=== PATIENT | female | born 1960 | race Caucasian/White ===

== ENCOUNTER 2023-02-23 11:35 | Inpatient (IN) | payer BC, SELFPAY ==
--- OUTSIDE RECORDS SUMMARY | 2023-02-23 11:38 | XMS REPORT | Continuity of Care Document ---
Author Name Unknown Address [address] [facility] [address] th[address] Address [address] [facility] [address] [place] [address] Care Team Providers [employer] Name Role Phone Unavailable Unavailable Unavailable
[2023-02-23] MEDS ORDERED: ONDANSETRON 4 MG/2 ML VIAL ONE (12:44)
[2023-02-23] MEDS ORDERED: MORPHINE 4 MG/ML SYR ONE (12:45)
[2023-02-23] MEDS ORDERED: NA CHLORIDE 0.9% 500 ML ONE ×2 (12:45→14:56)
[2023-02-23] MEDS ORDERED: FAMOTIDINE 20 MG/2 ML VIAL IV ONE (12:45)
[2023-02-23 13:18] LABS: Albumin 4.4 g/dL (3.4-5.0); Bilirubin Total 0.7 mg/dL (0.2-1.0); Potassium 3.1 mEq/L (3.5-5.1); Protein, Total 8.6 g/dL (6.4-8.2)
[2023-02-23 13:28] LABS: Absolute Lymphocytes (CBC) 1.3 K/uL (0.7-4.9); Hematocrit 51.1 % (36.0-45.0); Lymphocytes % 17.9 % (15.3-44.8); MCV 86.5 fL (80-100); MPV 8.5 fL (7.6-11.3); Platelets 249 thou/uL (152-406)
--- NOTE | 2023-02-23 14:03 | RAD REPORT ---
EXAM DESCRIPTION: CT - Abdomen Pelvis W Contrast - 02/23/2023 1:33 pm CLINICAL HISTORY: painful lump near right groin COMPARISON: No comparisons TECHNIQUE: Thin cut axial CT imaging of the abdomen and pelvis was performed following intravenous a dministration of 100 mL Isovue 300. Multiplanar reformats were generated and reviewed. All CT scans are performed using dose optimization technique as appropriate and may include automated exposure control or mA/KV adjustment according to patient size. FINDINGS: No suspicious findings in the lung bases. The liver, spleen, adrenal glands, and pancreas show no suspicious findings. Gallbladder and biliary tree are also without suspicious finding. Symmetric renal function is seen, although there are multifocal areas of cortical thinning, may relat e to scarring in the setting of prior infections, with no hydronephrosis or suspicious renal mass. No dilated bowel loops. Segmental regions of mild colonic wall thickening throughout, most notably al jeison the ascending colon, mid to distal transverse colon, and sigmoid colon. Mild mesenteric edema. No free air, free fluid or fluid collection. A hernia is noted in the right lower quadrant with its nec k just medial to the right femoral vein, axial image 66, with hernia sac filled with fluid measuring 3.3 x 3.3 cm. No suspicious mass or bulky lymphadenopathy. The urinary bladder is without significant finding. No suspicious bony findings. IMPRESSION: Right femoral fluid-filled small hernia, sac measuring up to 3.3 cm. Segmental colonic wall thickening, suggestive of nonspecific infectious or inflammatory colitis.
[2023-02-23] MEDS ORDERED: metroNIDAZOLE 500 MG TABLET ONE (14:47)
[2023-02-23] MEDS ORDERED: levoFLOXacin 250 MG TAB ONE (14:47)
[2023-02-23] MEDS ORDERED: KCL 20 MEQ/100 mL IVPB 100 ML IV ONE (14:48)
[2023-02-23] MEDS ORDERED: POTASSIUM 25 MEQ EFFERV TAB ONE (14:48)
--- NOTE | 2023-02-23 16:01 | ER ---
Nurse's Notes [facility] Name: Fauzia Jimenez Age: 62 yrs Sex: Female : 1960 Arrival Date: 02/23/2023 Time: 11:35 Bed 14 Private MD: Diagnosis: Vomiting;Colitis, right inguinal hernia, hypokalemia, hyponatremia Presentation: 02/23 11:47 Chief complaint: Malaise, N/V, dizziness, and generalized weakness x 5 days, painful hb lump near right groin x 4 days. Coronavirus screen: Client presents with at least one sign or symptom that may indicate coronavirus-19. Provider contacted for isolation considerations. Ebola Screen: No symptoms or risks identified at this time. Initial Sepsis Screen: Does the patient meet any 2 criteria? No. Patient's initial sepsis screen is negative. Does the patient have a suspected source of infection? No. Patient's initial sepsis screen is negative. Risk Assessment: Do you want to hurt yourself or someone else? Patient reports no desire to harm self or others. Onset of symptoms was February 19, 2023. 11:47 Method Of Arrival: Wheelchair hb 11:47 Acuity: TONY 3 hb Historical: - Allergies: 11:49 No Known Allergies; hb - Home Meds: 11:49 HRT [Active]; Alprazolam Oral [Active]; hb - PMHx: 11:49 None; hb - PSHx: 11:49 Breast Reduction; hb 11:50 Tubal Ligation; hb - Immunization history:: Adult Immunizations up to date. - Social history:: Smoking status: Patient denies any tobacco usage or history of. Screenin:10 [facility] ED Fall Risk Assessment (Adult) History of falling in the last 3 months, me1 including since admission No falls in past 3 months (0 pts) Confusion or Disorientation No (0 pts) Intoxicated or Sedated No (0 pts) Impaired Gait No (0 pts) Mobility Assist Device Used No (0 pt) Altered Elimination No (0 pt) Score/Fall Risk Level 0 - 2 = Low Risk Maintained a safe environment, Provided non-skid footwear, Hourly rounding (assess needs \T\ fall precautionary measures) done. Abuse screen: Denies threats or abuse. Nutritional screening: No deficits noted. Tuberculosis screening: No symptoms or risk factors identified. Assessment: 12:10 General: Appears uncomfortable, ill, well groomed, well developed, well nourished, me1 Behavior is calm, cooperative, appropriate for age, Reports feeling ill for fatigue for 2-3 days, Malaise, N/V, dizziness, and generalized weakness x 5 days, painful lump near right groin x 4 days. Pain: Complains of pain in right femoral area Pain does not radiate. Pain currently is 2 out of 10 on a pain scale. Quality of pain is described as tender, Pain began gradually, 2-3 days ago. Is intermittent. Neuro: Level of Consciousness is awake, alert, obeys commands, Oriented to person, place, time, situation, Appropriate for age. Cardiovascular: Capillary refill < 3 seconds Patient's skin is warm and dry. Respiratory: Airway is patent Respiratory effort is even, unlabored, Respiratory pattern is regular, symmetrical. GI: Reports nausea, vomiting, since 5 days. 22:36 General: Tried to call report. OPHELIA Martines was busy and will return my call. . me1 Vital Signs: 11:47 BP 166 / 99; Pulse 86; Resp 16; Temp 98.2; Pulse Ox 100% on R/A; Weight 50.35 kg; hb Height 5 ft. 4 in. ; Pain 3/10; 12:07 BP 174 / 103; Pulse 90; Resp 18; Pulse Ox 99% on R/A; me1 13:00 BP 184 / 108; Pulse 79; Resp 18; Pulse Ox 99% on R/A; me1 14:13 BP 174 / 105; Pulse 82; Resp 16; Pulse Ox 95% on R/A; me1 15:00 BP 181 / 104; Pulse 74; Resp 18; Pulse Ox 100% on R/A; me1 16:00 BP 170 / 93; Pulse 81; Resp 16; Pulse Ox 99% on R/A; me1 17:00 BP 154 / 96; Pulse 90; Resp 17; Pulse Ox 100% on R/A; me1 18:00 BP 161 / 95; Pulse 82; Resp 15; Pulse Ox 98% on R/A; me1 19:00 BP 145 / 84; Pulse 82; Resp 16; Pulse Ox 96% on R/A; me1 20:00 BP 163 / 95; Pulse 76; Resp 14; Pulse Ox 96% on R/A; me1 11:47 Body Mass Index 19.05 (50.35 kg, 162.56 cm) hb 11:47 Pain Scale: Adult hb ED Course: 11:38 Patient arrived in ED. ts1 11:49 Triage completed. hb 11:50 Arm band placed on. hb 12:00 Moses Maxwell MD is Attending Physician. kdr 12:08 Samina Rome, OPHELIA is Primary Nurse. me1 12:10 Patient has correct armband on for positive identification. Bed in low position. Call me1 light in reach. Side rails up X2. Provided Education on: POC. Verbalized understanding.. 12:10 No provider procedures requiring assistance completed. me1 12:48 Inserted saline lock: 22 gauge in right antecubital area, using aseptic technique. bc6 Blood collected. 15:58 Osmin Smith MD is Hospitalizing Provider. kdr 16:08 Inocencio Lara is Hospitalizing Provider. kdr 19:14 CBC with Diff Sent. me1 19:14 CMP Sent. me1 19:14 Lipase Sent. me1 19:25 Urinalysis w/ reflexes Sent. me1 20:00 Patient admitted, IV remains in place. me1 Administered Medications: 12:54 Drug: NS 0.9% IV 500 ml IV at 1 bolus Per protocol; 500 mL bolus Route: IV; Rate: 1 me1 bolus; Site: right antecubital; 13:16 Follow up: IV Status: Completed infusion; IV Intake: 500ml me1 12:54 Drug: Famotidine IVP 20 mg IVP once; dilute with 10 mL 0.9% NaCl; give over 2 minutes me1 Route: IVP; Site: right antecubital; 13:17 Follow up: Response: No adverse reaction me1 12:54 Drug: Ondansetron IVP 4 mg IVP once; over 2 minutes Route: IVP; Site: right antecubital;me1 13:17 Follow up: Response: No adverse reaction; Nausea is decreased me1 12:55 Drug: morphine IVP or IV 4 mg IVP once over 4 mins Route: IVP; Infused Over: 4 mins; me1 Site: right antecubital; 13:17 Follow up: Response: No adverse reaction; Pain is decreased me1 15:02 Drug: metroNIDAZOLE PO 500 mg PO once Route: PO; me1 16:43 Follow up: Response: No adverse reaction me1 15:02 Drug: LevOfloxacin PO 500 mg PO once Route: PO; me1 16:43 Follow up: Response: No adverse reaction me1 15:02 Drug: Potassium Chloride IV 20 mEq IV at calculated rate once; administer over 1-2 me1 hours Route: IV; Rate: calculated rate; Site: right antecubital; 19:01 Follow up: IV Status: Completed infusion; IV Intake: 100ml me1 19:01 Follow up: Response: No adverse reaction me1 15:02 Drug: Potassium PO Effervescent Tablet 50 mEq PO once; dissolve in 4 ounces of water or me1 juice Route: PO; 16:44 Follow up: Response: No adverse reaction me1 Medication: 12:10 VIS not applicable for this client. me1 Intake: 13:16 IV: 500ml; Total: 500ml. me1 19:01 IV: 100ml; Total: 600ml. me1 Outcome: 16:01 Decision to Hospitalize by Provider. kdr 22:33 Admitted to Tele accompanied by tech, via wheelchair, room 404, with chart, me1 22:33 Condition: stable 23:13 Admitted to Tele Report called to OPHELIA Martines me1 02/24 00:10 Patient left the ED. va1 Signatures: Moses Maxwell MD MD [facility] Cat Hurley RN RN Alondra Christensen 6 Yolanda Negron PAS PAS ts1 Samina Rome RN RN me1 Corrections: (The following items were deleted from the chart) 02/23 11:50 11:49 PSHx: None; [facility] 13:39 11:47 Chief complaint: Malaise, N/V, dizziness, and generalized weakness x 5 days, me1 painful lump near right groin x 4 days.
--- NOTE | 2023-02-23 16:01 | EDPHYS ---
Physician Documentation [facility] Name: Fauzia Jimenez Age: 62 yrs Sex: Female : 1960 Arrival Date: 02/23/2023 Time: 11:35 Bed 14 Private MD: ED Physician Moses Maxwell HPI: 02/23 13:28 This 62 yrs old Female presents to ER via Wheelchair with complaints of General kdr Weakness, Pelvic Pain, Cough. 13:28 Patient states that she has had nausea and vomiting since . She now kdr complains of generalized malaise, dizziness and generalized weakness. Overall this is been going on for about 5 days. She also noted initially when she started to vomit that she had a swelling in her right groin. That swelling has been there now for least 4 days. It appears that she has an inguinal hernia that is has not been reduced at this time. Initial efforts to reduce it without sedation or not successful. Patient otherwise stable in the ED. Onset: The symptoms/episode began/occurred gradually, 5 day(s) ago. Severity of symptoms: At their worst the symptoms were moderate in the emergency department the symptoms are unchanged. The patient has not experienced similar symptoms in the past. The patient has not recently seen a physician. Patient had intermittent swelling of the right groin for the past several years but has not thought much of it since it usually went away without any difficulty. Historical: - Allergies: 11:49 No Known Allergies; hb - Home Meds: 11:49 HRT [Active]; Alprazolam Oral [Active]; hb - PMHx: 11:49 None; hb - PSHx: 11:49 Breast Reduction; hb 11:50 Tubal Ligation; hb - Immunization history:: Adult Immunizations up to date. - Social history:: Smoking status: Patient denies any tobacco usage or history of. ROS: 13:28 Constitutional: Negative for fever, chills, and weight loss, Eyes: Negative for injury, kdr pain, redness, and discharge, Neck: Negative for injury, pain, and swelling, Cardiovascular: Negative for chest pain, palpitations, and edema, Respiratory: Negative for shortness of breath, cough, wheezing, and pleuritic chest pain, Back: Negative for injury and pain, : Negative for injury, bleeding, discharge, and swelling, MS/Extremity: Negative for injury and deformity, Skin: Negative for injury, rash, and discoloration, Neuro: Negative for headache, weakness, numbness, tingling, and seizure activity. Psych: Negative for depression, anxiety, suicide ideation, homicidal ideation, and hallucinations, Allergy/Immunology: Negative for hives, rash, and allergies, Endocrine: Negative for neck swelling, polydipsia, polyuria, polyphagia, and marked weight changes, Hematologic/Lymphatic: Negative for swollen nodes, abnormal bleeding, and unusual bruising, 13:28 Abdomen/GI: Positive for abdominal pain, nausea and vomiting, Negative for constipation, abdominal distension, anorexia, dysphagia, hematemesis, black/tarry stool, rectal pain, rectal bleeding, Exam: 13:28 Constitutional: This is a well developed, well nourished patient who is awake, alert, kdr and in no acute distress. Head/Face: Normocephalic, atraumatic. Eyes: Pupils equal round and reactive to light, extra-ocular motions intact. Lids and lashes normal. Conjunctiva and sclera are non-icteric and not injected. Cornea within normal limits. Periorbital areas with no swelling, redness, or edema. Neck: Trachea midline, no thyromegaly or masses palpated, and no cervical lymphadenopathy. Supple, full range of motion without nuchal rigidity, or vertebral point tenderness. No Meningismus. Chest/axilla: Normal chest wall appearance and motion. Nontender with no deformity. No lesions are appreciated. Cardiovascular: Regular rate and rhythm with a normal S1 and S2. No gallops, murmurs, or rubs. Normal PMI, no JVD. No pulse deficits. Respiratory: Lungs have equal breath sounds bilaterally, clear to auscultation and percussion. No rales, rhonchi or wheezes noted. No increased work of breathing, no retractions or nasal flaring. Abdomen/GI: Soft, non-tender, with normal bowel sounds. No distension or tympany. No guarding or rebound. No evidence of tenderness throughout. Back: No spinal tenderness. No costovertebral tenderness. Full range of motion. Skin: Warm, dry with normal turgor. Normal color with no rashes, no lesions, and no evidence of cellulitis. MS/ Extremity: Pulses equal, no cyanosis. Neurovascular intact. Full, normal range of motion. Neuro: Awake and alert, GCS 15, oriented to person, place, time, and situation. Cranial nerves II-XII grossly intact. Motor strength 5/5 in all extremities. Sensory grossly intact. Cerebellar exam normal. Normal gait. Psych: Awake, alert, with orientation to person, place and time. Behavior, mood, and affect are within normal limits. Vital Signs: 11:47 BP 166 / 99; Pulse 86; Resp 16; Temp 98.2; Pulse Ox 100% on R/A; Weight 50.35 kg; hb Height 5 ft. 4 in. ; Pain 3/10; 12:07 BP 174 / 103; Pulse 90; Resp 18; Pulse Ox 99% on R/A; me1 13:00 BP 184 / 108; Pulse 79; Resp 18; Pulse Ox 99% on R/A; me1 14:13 BP 174 / 105; Pulse 82; Resp 16; Pulse Ox 95% on R/A; me1 15:00 BP 181 / 104; Pulse 74; Resp 18; Pulse Ox 100% on R/A; me1 16:00 BP 170 / 93; Pulse 81; Resp 16; Pulse Ox 99% on R/A; me1 17:00 BP 154 / 96; Pulse 90; Resp 17; Pulse Ox 100% on R/A; me1 18:00 BP 161 / 95; Pulse 82; Resp 15; Pulse Ox 98% on R/A; me1 19:00 BP 145 / 84; Pulse 82; Resp 16; Pulse Ox 96% on R/A; me1 20:00 BP 163 / 95; Pulse 76; Resp 14; Pulse Ox 96% on R/A; me1 11:47 Body Mass Index 19.05 (50.35 kg, 162.56 cm) hb 11:47 Pain Scale: Adult hb MDM: 13:28 Data reviewed: vital signs, nurses notes, old medical records, radiologic studies. kdr 16:01 Patient medically screened. kdr 16:11 ED course: Discussed with Dr. Durbin, he will see the patient and evaluate the right kdr inguinal hernia. 02/23 12:28 Order name: CBC with Diff kdr 02/23 12:28 Order name: CMP kdr 02/23 12:28 Order name: Lipase kdr 02/23 12:28 Order name: Urinalysis w/ reflexes kdr 02/23 13:18 Order name: Comprehensive Metabolic Panel EDMS 02/23 13:18 Order name: Lipase EDMS 02/23 13:29 Order name: CBC with Automated Diff EDMS 02/23 19:40 Order name: Urinalysis w/ reflexes EDMS 02/23 12:28 Order name: CT Abd/Pelvis - IV Contrast Only kdr 02/23 14:04 Order name: CT; Complete Time: 14:34 EDMS 02/23 12:28 Order name: IV Saline Lock; Complete Time: 12:48 kdr 02/23 12:28 Order name: Labs collected and sent; Complete Time: 12:48 kdr Administered Medications: 12:54 Drug: NS 0.9% IV 500 ml IV at 1 bolus Per protocol; 500 mL bolus Route: IV; Rate: 1 me1 bolus; Site: right antecubital; 13:16 Follow up: IV Status: Completed infusion; IV Intake: 500ml me1 12:54 Drug: Famotidine IVP 20 mg IVP once; dilute with 10 mL 0.9% NaCl; give over 2 minutes me1 Route: IVP; Site: right antecubital; 13:17 Follow up: Response: No adverse reaction me1 12:54 Drug: Ondansetron IVP 4 mg IVP once; over 2 minutes Route: IVP; Site: right antecubital;me1 13:17 Follow up: Response: No adverse reaction; Nausea is decreased me1 12:55 Drug: morphine IVP or IV 4 mg IVP once over 4 mins Route: IVP; Infused Over: 4 mins; me1 Site: right antecubital; 13:17 Follow up: Response: No adverse reaction; Pain is decreased me1 15:02 Drug: metroNIDAZOLE PO 500 mg PO once Route: PO; me1 16:43 Follow up: Response: No adverse reaction me1 15:02 Drug: LevOfloxacin PO 500 mg PO once Route: PO; me1 16:43 Follow up: Response: No adverse reaction me1 15:02 Drug: Potassium Chloride IV 20 mEq IV at calculated rate once; administer over 1-2 me1 hours Route: IV; Rate: calculated rate; Site: right antecubital; 19:01 Follow up: IV Status: Completed infusion; IV Intake: 100ml me1 19:01 Follow up: Response: No adverse reaction me1 15:02 Drug: Potassium PO Effervescent Tablet 50 mEq PO once; dissolve in 4 ounces of water or me1 juice Route: PO; 16:44 Follow up: Response: No adverse reaction me1 Disposition Summary: 02/23/23 16:01 Hospitalization Ordered Notes: Hospitalization Status: Observation kdr Condition: Fair kdr Problem: new kdr Symptoms: have improved kdr Bed/Room Type: Standard kdr Provider: Inocencio Lara(02/23/23 16:08) kdr Location: Telemetry/MedSurg (observation)(02/23/23 22:11) cg Room Assignment: [facility](02/23/23 22:13) Diagnosis - Vomiting kdr - Colitis, right inguinal hernia, hypokalemia, hyponatremia kdr Forms: - Medication Reconciliation Form kdr - SBAR form kdr - Leadership Thank You Letter kdr Signatures: Dispatcher [employer] EDMoses Herron MD MD kdr Kristine De Luna RN RN Cat Hurley RN RN Darling Keller Samina Rome RN RN ks1 Corrections: (The following items were deleted from the chart) 11:50 11:49 PSHx: None; hb hb 16:08 16:01 Osmin Smith kdr kdr 17:15 16:01 Telemetry/MedSurg (observation) kdr eb 17:15 16:01 kdr eb 22:11 17:15 [facility] ER HOLD eb cg 22:11 17:15 ERHOLD- eb cg 22:13 22:11 cg cg
[2023-02-23] MEDS ORDERED: ONDANSETRON 4 MG/2 ML VIAL IV PRN (16:48)
[2023-02-23] MEDS ORDERED: ALBUTEROL 2.5 MG/3 ML NEB SOL NEB PRN (16:48)
[2023-02-23] MEDS ORDERED: NA CHLORIDE 0.9% 1,000 ML IV SCH (17:00)
[2023-02-23] MEDS ORDERED: MORPHINE 2 MG/ML SYR IV PRN (17:01)
--- NOTE | 2023-02-23 17:12 | P.HP ---
Certification for Inpatient Patient admitted to: Inpatient With expected LOS: >2 Midnights Patient will require the following post-hospital care: None Practitioner: I am a practitioner with admitting privileges, knowledge of patient current condition, hospital course, and medical plan of care. Services: Services provided to patient in accordance with Admission requirements found in Title 42 Section 412.3 of the Code of Federal Regulations Patient History Date of Service: 02/23/23 Reason for admission: right inguinal hernia History of Present Illness: Fauzia Andino is a 62-year-old female with past medical history of anxiety depression, COPD, smoking abuse, and marijuana use who presents to the ED with complaints of persistent nausea and vomiting and right inguinal hernia pain. She reports feeling sick with vomiting since . She reports her mother in November and she has been moving items now with a right inguinal hernia. CT abdomen pelvis with contrast reports a right femoral fluid-filled small hernia and segmental colonic wall thickening suggestive of nonspecific infectious or inflammatory colitis. Significant labs lipase 41, T. bili 0.7, WBC 7.4. CT abdomen pelvis with contrast reports " Right femoral fluid-filled small hernia, sac measuring up to 3.3 cm. Segmental colonic wall thickening, suggestive of nonspecific infectious or inflammatory colitis." Initial vitals: BP 166 / 99; Pulse 86; Resp 16; Temp 98.2; Pulse Ox 100% on R/A Laboratory evaluation sodium 128, potassium 3.1, BUN/creatinine 12/1.05, GFR 61, serum glucose 91, lipase 41, total bili 0.7. Palma will be admitted to hospitalist service for further treatment of right inguinal hernia, colitis, persistent nausea vomiting, hypokalemia, hyponatremia with a consult to Dr. Durbin for surgical intervention. Allergies No Known Allergies Allergy (Unverified 02/23/23 12:39) Review of Systems Gastrointestinal: Nausea, Vomiting, Abdominal Pain, Other (right inguinal pain) Physical Examination - Physical Exam General: Alert, Oriented x3, Moderate distress HEENT: Atraumatic, Normocephalic, PERRLA Neck: Supple, 2+ carotid pulse no bruit, JVD not distended Respiratory: Clear to auscultation bilaterally, Normal air movement Cardiovascular: Normal pulses, Regular rate/rhythm, Normal S1 S2 Capillary refill: <2 Seconds Gastrointestinal: Normal bowel sounds, Tenderness Musculoskeletal: No clubbing, No swelling, No contractures, No erythema Integumentary: No rashes, No breakdown, No significant lesion Neurological: Normal speech, Normal strength at 5/5 x4 extr, Normal tone - Studies Laboratory Data (last 24 hrs) 02/23/23 02/23/23 12:45 12:45 WBC 7.40 Hgb 17.8 H Hct 51.1 H Plt Count 249 Sodium 128 L Potassium 3.1 L BUN 12 Creatinine 1.05 H Glucose 91 Total Bilirubin 0.7 AST 14 L ALT 23 Alkaline Phosphatase 110 Lipase 41 Assessment and Plan - Plan Assessment and plan Right inguinal hernia -CT abdomen pelvis with contrast reports " Right femoral fluid-filled small hernia, sac measuring up to 3.3 cm. Segmental colonic wall thickening, suggestive of -nonspecific infectious or inflammatory colitis." -Pain control -N.p.o. likely surgery tomorrow -Dr. Durbin consulted -Levaquin and Flagyl given in the ED -Will continue Flagyl Acute colitis Persistent nausea vomiting -BUN/creatinine -N.p.o. -Zofran Hypokalemia Hyponatremia likely due fluid volume deficit -Potassium 3.1, sodium 128 -Potassium replaced in ED, will monitor in a.m. labs -Gentle IV fluids History of anxiety -Restart home medication Smoking abuse Marijuana use -Educated for cessation DVT PPx SCDs for now Full code LOS 2 to 3 days Discharge Plan: Home Plan to discharge in: 72 Hours - Advance Directives Does patient have a Living Will: No Does patient have a Durable POA for Healthcare: No Time Spent Managing Pts Care (In Minutes): 55
[2023-02-23 19:39] LABS: Specific Gravity 1.015 (1.005-1.030); Urine Bacteria <20 /HPF (<20); Urine Bilirubin NEGATIVE (Negative); Urine Blood Negative (Negative); Urine Clarity Turbid (Clear); Urine Color Colorless (Yellow); Urine Glucose NEGATIVE (Negative); Urine Protein NEGATIVE (Negative); Urine RBC <5 /HPF (None Seen); Urine Urobilinogen Normal (Normal); Urine WBC Clump Rare /HPF (None Seen); Urine pH 7.5 (5.0-7.0)
[2023-02-23] MEDS ORDERED: METRONIDAZOLE 500mg IVPB 0 MG/0 ML BAG IV ONE (21:15)
[2023-02-23] MEDS ORDERED: Levofloxacin500mg IV 0 MG/0 ML BAG IV ONE (21:15)
[2023-02-23] MEDS ORDERED: NA CHLORIDE 0.9% 1,000 ML ONE (21:15)
[2023-02-24 00:27] VITALS: BMI 18.4
[2023-02-24] MEDS: METRONIDAZOLE 500mg IVPB 500 MG/100 ML BAG IV SCH ×3 (00:41→17:00)
[2023-02-24 07:41] LABS: Absolute Lymphocytes (CBC) 1.6 K/uL (0.7-4.9); Lymphocytes % 20.9 % (15.3-44.8); MCV 87.1 fL (80-100); MPV 8.1 fL (7.6-11.3); Platelets 218 thou/uL (152-406); RBC Red Blood Cell Count 4.94 M/uL (3.86-4.86)
[2023-02-24 07:55] LABS: Magnesium 2.1 mg/dL (1.6-2.4); Phosphorus 3.1 mg/dL (2.5-4.9); Potassium 3.8 mEq/L (3.5-5.1)
[2023-02-24] MEDS ORDERED: HYDRALAZINE HCL 20 MG/ML VIAL IV PRN (08:49)
--- NOTE | 2023-02-24 11:41 | P.PN ---
Date of Service: 02/24/23 Subjective: Awake, sleeping on her right side, arouses easily, Conversing well, AAOx3. Awaiting surgery, currently NPO. Right Femoral inguinal hernia still protruding. She denies fever, chills, CP, SOB, and cough. ROS 10 point ROS as noted above, otherwise negative Physical Exam General: Alert, Oriented x3, Moderate distress HEENT: Atraumatic, Normocephalic, PERRLA Neck: Supple, 2+ carotid pulse no bruit, JVD not distended Respiratory: Clear to auscultation bilaterally, Normal air movement Cardiovascular: Normal pulses, Regular rate/rhythm, Normal S1 S2 Capillary refill: <2 Seconds Abdomen: Right Femoral Inguinal hernia protrusion, visualized and palpated Gastrointestinal: Normal bowel sounds, Tenderness Musculoskeletal: No clubbing, No swelling, No contractures, No erythema, Right femoral inguinal hernia protrusion Integumentary: No rashes, No breakdown, No significant lesion Neurological: Normal speech, Normal strength at 5/5 x4 extr, Normal tone Vitals Reviewed Problem list Right Femoral inguinal hernia Acute colitis Persistent nausea vomiting Hypokalemia Hyponatremia likely due fluid volume deficit History of anxiety Assessment and Plan Right Femoral inguinal hernia -CT abdomen pelvis with contrast reports " Right femoral fluid-filled small hernia, sac measuring up to 3.3 cm. Segmental colonic wall thickening, suggestive of -nonspecific infectious or inflammatory colitis." -Pain control -N.p.o. likely surgery today 02/24 -Dr. Durbin consulted- NPO expecting surgery today 02/24 -Levaquin and Flagyl given in the ED -Will continue Flagyl and levaquin Acute colitis Persistent nausea vomiting -BUN/creatinine -N.p.o. -Zofran -Flagyl and levaquin Hypokalemia Hyponatremia likely due fluid volume deficit -Potassium 3.8, sodium 130 -Potassium replaced in ED, will monitor in a.m. labs -Gentle IV fluids -no neurological deficits noted History of anxiety -Restart home medication Smoking abuse Marijuana use -Educated for cessation DVT PPx SCDs for now Full code LOS 2 to 3 days Time Spent Managing Pts Care (In Minutes): 35
[2023-02-24 12:34] LABS: Protime INR 1.11
[2023-02-24] MEDS ORDERED: Ringers Lactate 1,000 ML IV ONE ×2 (13:11→16:23)
--- NOTE | 2023-02-24 14:45 | P.CNS ---
Date of Consult: 02/23/23 PC: I was asked to see this 62-year-old female in regards to a possible incarcerated right inguinal hernia. HPC: Patient has had a right inguinal hernia for the last 3 years. Comes and goes. Usually quite reducible. Has had diarrhea and was recently straining, and the hernia popped out. Will no longer go back in. Causing her increasing pain and discomfort. PSHx: Bilateral tubal ligation, breast reduction PMHx: HRT, hypertension Social Hx: No known allergies Sys R: [] No cough, wheeze, shortness of breath. No chest pain or palpitations. No urinary complaints O/E: Awake alert vital signs are stable HEENT: Negative Chest: Air entry equal bilaterally Abd: Soft nontender [place]: Right groin area has a large mass, feels fluctuant possibly reducible but appears to be a piece of omentum that is stuck Data: CT scan demonstrates right inguinal hernia Impression: Incarcerated right inguinal hernia Plan: I will taken the operating room for laparoscopic possible open right inguinal hernia reduction and repair. We will also check on the left-hand side. The risks of this procedure have been discussed. The possibility of bleeding, infection, injury to bowel blood vessels and nerves were explained. The possible need for an open and/or possible recurrence in the future were outlined. We will be placing artificial mesh and she is aware of this. She wants us to proceed.
[2023-02-24] MEDS ORDERED: ROCURONIUM 50 MG/5 ML VIAL IV ONE (14:52)
[2023-02-24] MEDS ORDERED: propofoL 200 MG/20 ML VIAL IV ONE (14:52)
[2023-02-24] MEDS ORDERED: ONDANSETRON 4 MG/2 ML VIAL ONE ×2 (14:52→17:35)
[2023-02-24] MEDS ORDERED: LIDOCAINE 2% MPF 5 ML VIAL ONE (14:52)
[2023-02-24] MEDS ORDERED: FENTANYL CITR 250 MCG/5 ML ONE (14:52)
[2023-02-24] MEDS ORDERED: MIDAZOLAM HCL 2 MG/2 ML INJ ONE (14:53)
[2023-02-24] MEDS ORDERED: KCL 20 MEQ/100 mL IVPB 20 MEQ/100 ML BAG IV SCH (15:00)
[2023-02-24] MEDS ORDERED: Phenylephrine HCl 10 MG/ML 1 ML VIAL ONE (15:16)
[2023-02-24] MEDS ORDERED: NS 0.9% VIAL 10 ML ONE ×2 (15:17)
[2023-02-24] MEDS ORDERED: GLYCOPYRROLATE 0.2 MG/ML SYR ONE ×3 (16:41→16:42)
[2023-02-24] MEDS ORDERED: NEOSTIGMINE 1 MG/ML -10 ML VIAL ONE (16:41)
[2023-02-24] MEDS ORDERED: dexAMETHasone 4 MG/ML VIAL ONE (16:46)
[2023-02-24] MEDS ORDERED: MINERAL OIL 30 ML UCUP GT ONE (17:20)
[2023-02-24] MEDS ORDERED: HYDROCODONE/APAP 7.5/325 MG TAB PO PRN (17:20)
[2023-02-24] MEDS ORDERED: MINERAL OIL 30 ML UCUP PO ONE (17:22)
[2023-02-24] MEDS: HYDROMORPHONE HCL 1 MG/ML INJ ONE ×2 (17:29→17:34)
[2023-02-24] MEDS ORDERED: Levofloxacin500mg IV 500 MG/100 ML BAG IV SCH (18:00)
[2023-02-24] MEDS: Ringers Lactate 1,000 ML IV SCH (19:00)
[2023-02-25] MEDS: Ringers Lactate 1,000 ML IV SCH (02:41)
[2023-02-25] MEDS ORDERED: PROMETHAZINE 25 MG TABLET PO ONE (12:08)
[2023-02-25] MEDS ORDERED: POTASSIUM CL SA 10 MEQ TAB PO ONE ×2 (12:29→15:10)
[2023-02-25 12:36] VITALS: BP 168/82; TEMP 99.4; O2SAT 95
--- NOTE | 2023-02-25 14:47 | P.DS ---
Admission Date: 02/23/23 Discharge Date: 02/25/23 Disposition: ROUTINE DISCHARGE Discharge Condition: GOOD Reason for Admission: right inguinal hernia Consultations: General surgeryDr. Durbin Procedures: Femoral hernia repair Brief History of Present Illness: Fauzia Andino is a 62-year-old female with past medical history of anxiety depression, COPD, smoking abuse, and marijuana use who presents to the ED with complaints of persistent nausea and vomiting and right inguinal hernia pain. She reports feeling sick with vomiting since . She reports her mother in November and she has been moving items now with a right inguinal hernia. CT abdomen pelvis with contrast reports a right femoral fluid-filled small hernia and segmental colonic wall thickening suggestive of nonspecific infectious or inflammatory colitis. Significant labs lipase 41, T. bili 0.7, WBC 7.4. CT abdomen pelvis with contrast reports " Right femoral fluid-filled small hernia, sac measuring up to 3.3 cm. Segmental colonic wall thickening, suggestive of nonspecific infectious or inflammatory colitis." Initial vitals: BP 166 / 99; Pulse 86; Resp 16; Temp 98.2; Pulse Ox 100% on R/A Laboratory evaluation sodium 128, potassium 3.1, BUN/creatinine 12/1.05, GFR 61, serum glucose 91, lipase 41, total bili 0.7. Palma will be admitted to hospitalist service for further treatment of right inguinal hernia, colitis, persistent nausea vomiting, hypokalemia, hyponatremia with a consult to Dr. Durbin for surgical intervention. Hospital Course: Problem List Right Femoral inguinal hernia Acute colitis Persistent nausea vomiting Hypokalemia Hyponatremia likely due fluid volume deficit History of anxiety Patient was admitted to the hospital for right femoral inguinal hernia with possible colitis, nausea/vomiting. She had a mesh hernia repair performed on 02/24/2023 with general surgeryDr. Durbin. Procedure was tolerated well, diet was advanced during the day today. Patient with minimal pain after procedure, tolerating diet. Stable for discharge at this time will need to follow-up with general surgery in around 1 week. Recommend ambulation at least 4 times a day to avoid DVT in the postoperative period. Continue other home medications as prescribed. Vital Signs/Physical Exam: Temp Pulse Resp BP Pulse Ox 99.4 F 78 18 168/82 H 94 02/25/23 12:00 02/25/23 12:00 02/25/23 12:00 02/25/23 12:00 02/25/23 12:00 General: Alert, In no apparent distress, Oriented x3 HEENT: Atraumatic, PERRLA, EOMI Neck: Supple, JVD not distended Respiratory: Clear to auscultation bilaterally, Normal air movement Cardiovascular: Regular rate/rhythm, Normal S1 S2 Gastrointestinal: Normal bowel sounds, Tenderness (Mild generalized abdominal tenderness) Musculoskeletal: No tenderness Integumentary: No rashes Neurological: Normal speech, Normal tone, Normal affect Laboratory Data at Discharge: WBC 7.50 thou/uL (4.3-10.9) 02/24/23 07:21 Hgb 14.9 g/dL (12.0-15.0) D 02/24/23 07:21 Hct 43.0 % (36.0-45.0) 02/24/23 07:21 Plt Count 218 thou/uL (152-406) 02/24/23 07:21 PT 12.2 SECONDS (9.5-12.5) 02/24/23 12:07 INR 1.11 02/24/23 12:07 APTT 27.7 SECONDS (24.3-36.9) 02/24/23 12:07 Sodium 130 mEq/L (136-145) L 02/24/23 07:21 Potassium 3.8 mEq/L (3.5-5.1) D 02/24/23 07:21 BUN 9 mg/dL (7-18) 02/24/23 07:21 Creatinine 0.76 mg/dL (0.55-1.02) 02/24/23 07:21 Glucose 92 mg/dL (74-106) 02/24/23 07:21 Phosphorus 3.1 mg/dL (2.5-4.9) 02/24/23 07:21 Magnesium 2.1 mg/dL (1.6-2.4) 02/24/23 07:21 Total Bilirubin 0.7 mg/dL (0.2-1.0) 02/23/23 12:45 AST 14 U/L (15-37) L 02/23/23 12:45 ALT 23 U/L (13-56) 02/23/23 12:45 Alkaline Phosphatase 110 U/L (45-117) 02/23/23 12:45 Lipase 41 U/L (13-75) 02/23/23 12:45 Home Medications: Alprazolam [Xanax] 0.5 tab PO TID PRN 02/24/23 Estrogen,Con/M-Progest Acet [Prempro 0.3 mg-1.5 mg Tablet] 1 tab PO DAILY 02/24/23 Physician Discharge Instructions: Patient was admitted to the hospital for right femoral inguinal hernia with possible colitis, nausea/vomiting. She had a mesh hernia repair performed on 02/24/2023 with general surgeryDr. Durbin. Procedure was tolerated well, diet was advanced during the day today. Patient with minimal pain after procedure, tolerating diet. Stable for discharge at this time will need to follow-up with general surgery in around 1 week. Recommend ambulation at least 4 times a day to avoid DVT in the postoperative period. Continue other home medications as prescribed. Diet: Regular Activity: No lifting more than 10 lbs Followup: Chin Durbin MD [ACTIVE - CAN ADMIT] - 1 Week OOTEVERARDO [Primary Care Provider] - Time spent managing pt's care (in minutes): 35
--- NOTE | 2023-02-25 15:15 | P.PN ---
Date of Service: 02/25/23 S: Patient feels better today, no specific complaints at all. Had some nausea most likely from the narcotics she has been getting. Anxious to go home. O: Wounds are clean, voiding on her own. She is able to ambulate. A: Stable status post laparoscopic reduction and repair of strangulated right inguinal hernia with mesh P: Patient will be discharged today. She says she will just use Advil or Motrin for her pain. She has been instructed on bathing, using her incentive spirometry. She needs to get up and ambulate at home. Should she have any questions or problems, she may return to the emergency room, or contact me. She can call my office on Sunday to set up an appointment for staple removal. She is content with this plan.
--- NOTE | 2023-03-02 14:05 | EKG ---
Test Date: 2023-02-23 Test Time: 12:18:26 Obstetrics Gyn Physician: QIANA MEASUREMENT RESULTS: Intervals: Rate: 80 HI: 84 QRSD: 80 QT: 374 QTc: 431 [place]: P: -54 HI: 84 QRS: 82 T: 64 INTERPRETIVE STATEMENTS: Unusual P axis, possible ectopic atrial rhythm Abnormal ECG No previous ECG available for comparison Electronically Signed On 03-02-23 13:48:12 CURRICULUM WRITER by Rob Beltrán
== END 2023-02-25 15:51 | disposition home or self-care (01) | DRG 394 ==
LOC: ER 11:35 → ERHOLD 16:48 → 4TH 23:59
PROVIDERS: ADMIT Internal Medicine; ATTEND Internal Medicine
DX: K41.90 Unilateral femoral hernia, without obstruction or gangrene, not specified as recurrent (principal); E87.1 Hypo-osmolality and hyponatremia; E87.6 Hypokalemia; I10 Essential (primary) hypertension; K52.9 Noninfective gastroenteritis and colitis, unspecified; J44.9 Chronic obstructive pulmonary disease, unspecified; F41.9 Anxiety disorder, unspecified; K40.90 Unilateral inguinal hernia, without obstruction or gangrene, not specified as recurrent; F17.200 Nicotine dependence, unspecified, uncomplicated; Z63.4 Disappearance and death of family member; Z98.51 Tubal ligation status; Z79.899 Other long term (current) drug therapy
CPT/HCPCS: 36415; 74177; 80048; 80053; 81001; 83690; 83735; 84100; 85025; 85610; 85730; 88302; 93005; 96365; 96366; 96375; 99285; A4216; J0360; J1100; J1170; J2001; J2250; J2270; J2371; J2405; J2704; J2710; J3010; J3480; J7030; J7040; J7120; Q0169; Q9967